=== PATIENT | female | born 1995 | race Caucasian/White ===

== ENCOUNTER 2017-08-02 03:40 | Emergency (ER) | payer OTHER ==
[2017-08-02] MEDS ORDERED: Morphine INJ* 4 MG/ML 1 ML CARPUJECT IV ONE (04:05)
[2017-08-02] MEDS ORDERED: Morphine VIAL* 4 MG/ML VIAL (1 ml vial) IV ONE (04:17)
[2017-08-02 04:48] LABS: ABS Basophils 0.1 10^3/ul (0-0.2); ABS Eosinophils 0 10^3/ul (0-0.6); ABS Lymphocytes 1.7 10^3/ul (1.0-4.8); ABS Monocytes 0.9 10^3/ul (0-0.8); ABS Neutrophils 13.7 10^3/ul (1.5-7.7); ABS Nucleated RBC 0 10^3/ul; Eosinophil % 0.2 % (0-6); Hematocrit 39 % (35-47); Hemoglobin 13.2 g/dl (12.0-16.0); Lymphocyte % 10.4 % (25-47); Mean Corpuscular HGB Conc 34 g/dl (31-36); Mean Corpuscular Hemoglobin 30 pg (27-31); Mean Corpuscular Volume 89 fL (80-97); Mean Platelet Volume 9.3 um3 (7.4-10.4); Nucleated Red Blood Cells % 0; Platelet Count 252 10^3/ul (150-450); Red Blood Count 4.38 10^6/ul (4.0-5.4); Red Cell Distribution Width 13 % (10.5-15); White Blood Count 16.4 10^3/ul (3.5-10.8)
[2017-08-02] MEDS ORDERED: Methylergonovine INJ* 0.2 MG/ML 1ML AMP IM ONE (05:24)
--- NOTE | 2017-08-02 06:41 | ED ---
Jatinder Hamilton Rebecca, scribed for Marv Reynolds MD on 08/02/17 at 0408 . Abdominal Pain/Female - HPI Summary HPI Summary: Pt is a 21 y/o F who presents to ED c/o abdominal pain with heavy vaginal bleeding. Vaginal bleeding began yesterday as though it was a normal period, worsening at 0200 this morning. Pain is currently ranked 7/10 and characterized as cramping, located in the suprapubic region with radiation to the back. Sx aggravated and alleviated by nothing. LNMP week of June. No prior similar episodes. - History of Current Complaint Chief Complaint: EDVaginalBleeding Stated Complaint: VAGINAL BLEEDING Time Seen by Provider: 08/02/17 04:00 Hx Obtained From: Patient Onset/Duration: Lasting Hours, Still Present Severity Currently: Moderate Pain Intensity: 7 Pain Scale Used: 0-10 Numeric Location: Suprapubic Radiates: Yes Radiates to: Back Character: Cramping Aggravating Factor(s): Nothing Alleviating Factor(s): Nothing Associated Signs and Symptoms: Positive: Vaginal Bleeding Allergies/Adverse Reactions: Allergies Allergy/AdvReac Type Severity Reaction Status Date / Time Penicillins Allergy Rash Verified 08/02/17 03:48 PMH/Surg Hx/FS Hx/Imm Hx Previously Healthy: Yes Endocrine/Hematology History: Denies: Hx Diabetes Cardiovascular History: Denies: Hx Coronary Artery Disease Infectious Disease History: No Infectious Disease History: Denies: Traveled Outside the [place] in Last 30 Days - Family History Known Family History: Positive: Hypertension Negative: Diabetes - Social History Lives: With Family Alcohol Use: None Substance Use Type: Reports: None Smoking Status (MU): Never Smoked Tobacco Review of Systems Positive: Abdominal Pain Positive: other - Vaginal bleeding All Other Systems Reviewed And Are Negative: Yes Physical Exam - Summary Physical Exam Summary: Appearance: Mild distress, some mild shaking probably due to pain Skin: warm, dry, mild pallor Head/face: normal Eyes: EOMI, BRANDY ENT: normal Neck: supple, non-tender Respiratory: CTA, breath sounds present Cardiovascular: RRR, pulses symmetrical Abdomen: RLQ non-tender, suprapubic tenderness, soft Bowel Sounds: present Musculoskeletal: normal, strength/ROM intact Neuro: normal, sensory motor intact, A&Ox3 Pelvic: Heavy active bleeding. The vaginal vault is filled with clots and debris. The clot was suctioned out and a gestational sac about 3 cm in diameter came out, intact, and the vault appeared empty after. Cervix open. Triage Information Reviewed: Yes Vital Signs On Initial Exam: Initial Vitals Temp Pulse Resp BP Pulse Ox 97.1 F 85 20 104/57 100 08/02/17 03:40 08/02/17 03:40 08/02/17 03:40 08/02/17 03:40 08/02/17 03:40 Vital Signs Reviewed: Yes Diagnostics - Vital Signs Vital Signs Temp Pulse Resp BP Pulse Ox 08/02/17 03:40 97.1 F 85 20 104/57 100 - Laboratory Lab Results: Lab Results 08/02/17 08/02/17 08/02/17 Range/Units 04:20 04:20 04:20 WBC 16.4 H (3.5-10.8) 10^3/ul RBC 4.38 (4.0-5.4) 10^6/ul Hgb 13.2 (12.0-16.0) g/dl Hct 39 (35-47) % MCV 89 (80-97) fL MCH 30 (27-31) pg MCHC 34 (31-36) g/dl RDW 13 (10.5-15) % Plt Count 252 (150-450) 10^3/ul MPV 9.3 (7.4-10.4) um3 Neut % (Auto) 83.0 (38-83) % Lymph % (Auto) 10.4 L (25-47) % [place] % (Auto) 5.8 (0-7) % Eos % (Auto) 0.2 (0-6) % Baso % (Auto) 0.6 (0-2) % Absolute Neuts (auto) 13.7 H (1.5-7.7) 10^3/ul Absolute Lymphs (auto) 1.7 (1.0-4.8) 10^3/ul Absolute Monos (auto) 0.9 H (0-0.8) 10^3/ul Absolute Eos (auto) 0 (0-0.6) 10^3/ul Absolute Basos (auto) 0.1 (0-0.2) 10^3/ul Absolute Nucleated RBC 0 10^3/ul Nucleated RBC % 0 Sodium 135 L (139-145) mmol/L Potassium 3.4 L (3.5-5.0) mmol/L Chloride 104 (101-111) mmol/L Carbon Dioxide 20 L (22-32) mmol/L Anion Gap 11 (2-11) mmol/L BUN 9 (6-24) mg/dL Creatinine 0.76 (0.51-0.95) mg/dL Est GFR ( Amer) 124.8 (>60) Est GFR (Non-Af Amer) 97.0 (>60) BUN/Creatinine Ratio 11.8 (8-20) Glucose 136 H (70-100) mg/dL Calcium 9.1 (8.6-10.3) mg/dL Beta HCG, Quant 35003.00 mIU/mL Blood Type A Positive Antibody Screen Negative Result Diagrams: 18 04:20 08/02/17 04:20 Lab Statement: Any lab studies that have been ordered have been reviewed, and results considered in the medical decision making process. - Ultrasound No standard instances Ultrasound Interpretation Completed By: ED Physician - Transvaginal US - endometrium 2.6 cm with no vascularity and no gestational sac Re-Evaluation - Re-Evaluation First Eval Re-Evaluation Time: 06:19 Change: Improved Comment: Discussed discharge and pt feels much better. Abdominal Pain Fem Course/Dx - Course Course Of Treatment: Pt's cramping/bleeding pretty much stopped after pelvic exam where an intact gestational sac was removed just distal to cervix along with clot. IM methergine given. H/H stable. US tech felt there was no vascularity -- rads reading is for some vascularity. Rh+. D/W OBGYN who agrees pt can be discharged and will follow her up in office tomorrow. - Diagnoses Differential Diagnosis: Positive: Ectopic , Ovarian Cyst, Other - fibroids, complete/incomplete AB Provider Diagnoses: Complete spontaneous - Provider Notifications Discussed Care Of Patient With: Jamaal Rizzo Time Discussed With Above Provider: 06:12 Instructed by Provider To: Other - Will followup with the patient on Thursday and agrees that she can be discharged and did not want her on any additional medication. Discharge - Sign-Out/Discharge Documenting (check all that apply): Discharge - Discharge - Discharge Plan Condition: Improved Disposition: HOME Patient Education Materials: Miscarriage (ED) Forms: *Work Release Referrals: Magda Alanis MD [Primary Care Provider] - Jamaal Rizzo MD [Medical Doctor] - Additional Instructions: call office first thing tomorrow for an appt to be seen lexii. Return with heavy bleeding, passing out, weakness, worse or other concerns. Your blood type is A+. Ibuprofen as needed for discomfort. - Billing Disposition and Condition Condition: IMPROVED Disposition: HOME The documentation as recorded by the Jatinder dueñas Rebecca accurately reflects the service I personally performed and the decisions made by me, Marv Reynolds MD.
[2017-08-02 06:44] VITALS: BP 119/77
--- NOTE | 2017-08-02 08:38 | RAD ---
HISTORY: Heavy menstrual bleeding status post miscarriage. COMPARISONS: None TECHNIQUE: Multiple transverse and longitudinal ultrasound images were obtained of the pelvis using grayscale, color flow, spectral and M-mode sonographic imaging. FINDINGS: UTERUS: The endometrial stripe thickness measures 2.6 cm. The endometrial stripe is heterogeneous in echogenicity with multiple foci of vascularity. GESTATION: No gestational sac or pole is identified. CUL-DE-SAC: There is no free fluid within the cul-de-sac. RIGHT OVARY: The right ovary measures 2.9 x 1.6 x 4.4 cm. LEFT OVARY: The left ovary measures 3.6 x 2.7 x 2.3 cm. IMPRESSION: In the setting of recent miscarriage the sonographic findings are concerning for retained products of conception.
== END 2017-08-02 06:43 | disposition home or self-care (01) ==
LOC: ED 03:40
DX: O03.9 Complete or unspecified spontaneous abortion without complication (principal); Z88.0 Allergy status to penicillin
CPT/HCPCS: 36415; 76801; 80048; 84702; 85025; 86703; 86850; 86900; 86901; 88233; 88291; 88305; 96372; 96374; 99284; J2210; J2270